=== PATIENT | female | born 1965 | race Caucasian/White ===

== ENCOUNTER 2018-10-26 12:36 | Emergency (ER) | payer OTHER ==
[2018-10-26 12:47] VITALS: BP 152/94; PULSE 76; TEMP 98.6; BMI 30.2
[2018-10-26] MEDS ORDERED: hydrOXYzine PAMOATE 25 MG CAPSULE (FP) PO ONE ×2 (13:42→13:52)
[2018-10-26] MEDS ORDERED: KETOROLAC TROMETHAMINE 60 MG/2 ML VIAL IM ONE (13:42)
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
[2018-10-26] MEDS ORDERED: KETOROLAC TROMETHAMINE 60 MG/2 ML VIAL ONE (13:53)
== END 2018-10-26 14:46 | disposition home or self-care (01) ==
LOC: FER 12:36
CPT/HCPCS: 99283-25